=== PATIENT | male | born 2000 | race Caucasian/White ===

== ENCOUNTER 2018-12-24 00:16 | Day surgery (SDC) | payer BC ==
[~2018-12-24] VITALS: Ht 188 cm; Wt 77.6 kg
[2018-12-24] MEDS ORDERED: FAMOTIDINE 20 MG TAB PO ONE (07:45)
[2018-12-24] MEDS ORDERED: LIDOCAINE/SOD BICARB 8.4% SYR ID ONE (07:45)
[2018-12-24] MEDS ORDERED: NORMOSOL R SOLN(*) 1000 ML BAG 1,000 ML IV PRN (07:45)
[2018-12-24] MEDS ORDERED: MIDAZOLAM 2 MG/2 ML VIAL IVP PRN (07:45)
[2018-12-24] MEDS ORDERED: ceFAZolin(*) 2GM/D5W 50ML 50 ML IVPB ONE (08:30)
[2018-12-24 08:32] VITALS: BP 117/70
[2018-12-24 08:32] LABS: PLATELET COUNT, AUTOMATED 209 K/uL (150-450)
[2018-12-24] MEDS ORDERED: PROPOFOL EMUL(*) 10MG/ML 20 ML 40 ML ONE (09:06)
[2018-12-24] MEDS ORDERED: DEXAMETHASONE SOD PHOS 10MG/ML ONE (09:06)
[2018-12-24] MEDS ORDERED: ROCURONIUM BROM 10 MG/ML 10 ML ONE (09:06)
[2018-12-24] MEDS ORDERED: ONDANSETRON 4 MG/2 ML VIAL ONE ×2 (09:06→11:40)
[2018-12-24] MEDS ORDERED: ROPIVACAINE 0.5% 20 ML VIAL ONE (09:10)
[2018-12-24] MEDS ORDERED: BUPIVACAINE/EPI 0.5% 50ML VIAL INFIL ONE ×2 (09:23→11:08)
[2018-12-24] MEDS ORDERED: fentaNYL CITR 100 MCG/2 ML AMP ONE ×3 (09:32→11:30)
[2018-12-24] MEDS ORDERED: KETOROLAC 30 MG/ML VIAL ONE (10:54)
[2018-12-24] MEDS ORDERED: SUGAMMADEX SOD 200 MG/2 ML SDV ONE (10:58)
[2018-12-24] MEDS ORDERED: TRAM-420 PO (11:19)
--- NOTE | 2018-12-24 11:21 | Short(Outpt) Discharge Summary ---
Discharge Summary Reason for Hosp/Final Diag: (1) Right inguinal hernia Hospital Course & Plan: pt presented for right ing hernia repair. he tolerated the procedure well. he will be discharged home when criteria met. Departure Discharge to: Home Discharge Instructions Home Meds Active Scripts Tramadol Hcl (TRAMADOL HCL) 50 Mg Tablet, 50 MG PO Q4H PRN for PAIN, #20 TAB Prov:LORENZA OLMSTEAD 12/24/18 Diet: Regular Activity: No Heavy Lifting Special Instructions: no lifting more than 15 lbs for 3 wks. ok to shower tomorrow. take stool softener while taking pain meds. f/u dr. abundio olmstead 2 wks ([phone]). LORENZA OLMSTEAD December 24, 2018 11:21
--- NOTE | 2018-12-24 11:26 | Post Operative Progress Note ---
Post Operative Progress Note Date: December 24, 2018 Time: 11:21 Surgeon: dr. abundio olmstead #[id number] Brain Picker: none Anesthesia: gen, local dr. lamb Pre-Op Diagnosis: right ing hernia Post-Op Diagnosis: same Findings: right ing hernia Procedure(s): robot right ing hernia repair with mesh Specimen Removed:(May be N/A): none Complications: none Estimated Blood Loss: minimal Date OP Note Dictated: December 24, 2018 Time OP Note Dictated: 11:22 LORENZA OLMSTEAD December 24, 2018 11:26
--- NOTE | 2018-12-24 11:38 | OPERATIVE REPORT 1 ---
EVENT DATE: December 24, 2018 SURGEON: Desmond Feldman MD ANESTHESIOLOGIST: Dawson Kasper MD ANESTHESIA: General with local. INVOICE CHECKER: None. PREOPERATIVE DIAGNOSIS Right inguinal hernia. POSTOPERATIVE DIAGNOSIS Right inguinal hernia. PROCEDURE PERFORMED Robotic right inguinal hernia repair with mesh. FLUIDS IV crystalloids. ESTIMATED BLOOD LOSS Minimal. SPECIMENS None. COMPLICATIONS None. INDICATIONS This is a 18-year old male with a right inguinal hernia that is bothersome to him. On physical exam, he is stable. He has medium sized right inguinal hernia. Risks and benefits of the procedure were explained and consent was signed. DESCRIPTION OF PROCEDURE The patient was taken to the operating room and placed in the supine position. General anesthesia was administered per the Anesthesia team. The patient was prepped and draped in normal sterile fashion. Local anesthesia was injected into the dermis above the umbilicus and a small vertical incision was made. Umbilical stump was grasped and elevated. Veress needle was inserted. Pneumoperitoneum was achieved. Veress needle was removed. An 8 mm port was advanced. After injecting local analgesia and under direct vision, a right sided 8 mm port and a left sided 8 mm port were placed. I inspected the abdomen. There was no injury upon entry. The 10 x 15 right sided ProGrip mesh was placed as well as the absorbable V-Loc stitch. Robot was then docked. Peritoneal flap was created with scissors. This was taken down to the level of Juanjo's ligament and below the level of the ileopubic tract. Hernia sac was reduced. It was divided distally and left open distally. Care was taken to the protect the inferior epigastric vessels and cord structures. The hernia was a medium sized indirect defect. The mesh was made to lie flat. The peritoneal flap was closed with a running absorbable V-Loc stitch. Hemostasis was assured. The robot was then docked. A Tapblock was placed on the right laparoscopically. Ports were removed under direct vision. Hemostasis was assured. Pneumoperitoneum was relieved. Final port was removed. All skin incisions were closed with 4-0 Monocryl subcuticular stitches. More local analgesia was injected. Appropriate dressings were applied. The patient tolerated the procedure well. There were no complications. MTDD
[2018-12-24] MEDS: fentaNYL CITR 100 MCG/2 ML AMP ONE ×2 (11:47→12:05)
[2018-12-24] MEDS ORDERED: traMADol 50 MG TAB ONE (12:32)
[2018-12-24 12:45] VITALS: BP 111/66
[2018-12-24 13:15] VITALS: BP 113/65
[2018-12-24 13:50] VITALS: BP 110/70
[2018-12-24 13:54] VITALS: BP 110/64
--- NOTE | 2018-12-24 14:47 | NUR ---
1245- PT. RECEIVED FROM THE OR VIA STRETCHER. SBAR RECEIVED FROM IMAN RN AND JENNIFER ADAMS. SEE ADMISSIONS ASSESSMENT. PT. STATES THAT PAIN IS 7/10. SEE ADMISSIONS ASSESSMENT. PT. RETURNED TO ROOM AIR. 1300- PT. GIVEN STRING CHEESE AND STATES THAT PAIN IS GETTING A LITTLE BETTER. 1330- PT. RESTING AND STATES THAT HIS PAIN IS STARTING TO CREEP UP A LITTLE HIGHER BACK AROUND A 7. 1350- PT. STATES THAT HE NEEDS TO USE THE RESTROOM SO ORTHOSTATICS PREFORMED. PT. STATES THAT THE MOVEMENT MADE HIS PAIN SHOOT UP TO A 10/10. PT. AMBULATED TO BATHROOM WITHOUT ANY ASSISTANCE. 1410- PT. GETTING DRESSED. 1415- IV'S TAKEN OUT WITH CATH INTACT AND PRESSURE DRESSING APPLIED. 1420- DC INSTRUCTIONS GONE OVER WITH PT. AND FAMILY. 1430- PT. ACCOMPANIED OUT AMBULATORY WITH FAMILY. SEE DISCHARGE ASSESSMENT.
== END 2018-12-24 12:45 | disposition home or self-care (01) ==
LOC: OR 00:16
PROVIDERS: ATTEND Surgery
DX: K40.90 Unilateral inguinal hernia, without obstruction or gangrene, not specified as recurrent (principal)
CPT/HCPCS: 49650; 85025; C1781; J1100; J1885; J2250; J2405; J2704; J3010; S2900; J0690; J2795